=== PATIENT | male | born 1990 | race Caucasian/White ===

== ENCOUNTER 2017-03-12 17:09 | Emergency (ER) | payer OTHER ==
[~2017-03-12] VITALS: Ht 180.3 cm; Wt 111.1 kg
[~2017-03-12 17:09] MED LIST: HYDROCODONE BIT1 T11 PO; LOMOTIL 0.025 M1 TA1 PO; MOTRIN800 MG PO; VICODIN ES 7501 TAB PO
[2017-03-12] MEDS ORDERED: DELTASONE20 M1 PO (17:40)
[2017-03-12] MEDS ORDERED: ROBAXIN500 M1 PO (17:40)
== END 2017-03-12 17:47 | disposition home or self-care (01) ==
LOC: ED 17:09
DX: M54.16 Radiculopathy, lumbar region (principal); Z90.49 Acquired absence of other specified parts of digestive tract

== ENCOUNTER → 2017-08-14 | Outpatient (CLI) | payer OTHER ==
[~2017-08-14] MED LIST changes: +DELTASONE20 M1 PO; +ROBAXIN500 M1 PO
[2017-08-14 12:04] LABS: HEMATOCRIT 34.9 % (42.0-52.0); HEMOGLOBIN 10.8 g/dl (14.0-18.0); MEAN CELL VOLUME 62.8 fl (80.0-94.0); MEAN CORPUSCULAR HGB 19.4 pg (27.0-31.0); MEAN CORPUSCULAR HGB CONC 30.9 g/dl (33.0-37.0); MEAN PLATELET VOLUME 10.7 fl (9.6-12.3); RED BLOOD COUNT 5.56 10*6/uL (4.50-5.90); WHITE BLOOD COUNT 5.5 10*3/uL (4.8-10.8)
[2017-08-14 12:39] LABS: ALBUMIN 4.3 gm/dl (3.1-4.5); ALKALINE PHOSPHATASE 83 U/L (45-117); BUN 14 mg/dl (7-24); CHLORIDE 105 mmol/L (98-107); CHOLESTEROL 135 mg/dL (<200); CREATININE 1.02 mg/dL (0.70-1.30); HDL CHOLESTEROL 42 mg/dl (40-60); LDL CHOLESTEROL 80 mg/dL (9-159); POTASSIUM 3.9 mmol/L (3.5-5.1); SGOT/AST 29 IU/L (3-35); SGPT/ALT 55 U/L (12-78); SODIUM 140 mmol/L (136-145); TRIGLYCERIDES 64 mg/dl (<150); VLDL CHOLESTEROL 13 mg/dL (6-40)
[2017-08-15 05:07] LABS: HEPATITIS B SURFACE AB 006395 Non Reactive (.); HEPATITIS B SURFACE AG Negative (Negative); HEPATITIS C VIRUS ANTIBODY <0.1 s/co (0.0-0.9)
== END | disposition home or self-care (01) ==
LOC: LAB 11:19
PROVIDERS: Family Medicine
DX: F90.9 Attention-deficit hyperactivity disorder, unspecified type (principal); D64.9 Anemia, unspecified; K76.0 Fatty (change of) liver, not elsewhere classified

== ENCOUNTER → 2017-08-22 | Outpatient (CLI) | payer OTHER | END | disposition home or self-care (01) | LOC: US 09:30 | DX: K76.0 Fatty (change of) liver, not elsewhere classified (principal) ==

== ENCOUNTER → 2020-02-27 | Outpatient (CLI) | payer OTHER | END | disposition home or self-care (01) | LOC: COVID19 14:18 | PROVIDERS: ATTEND Family Medicine | DX: U07.1 COVID-19 (principal) ==